=== PATIENT | female | born 1960 | race Caucasian/White ===

== ENCOUNTER → 2019-01-02 | Outpatient (CLI) | payer BC | LOC: MC.RAD 08:45 | DX: Z12.31 Encounter for screening mammogram for malignant neoplasm of breast (principal) ==

== ENCOUNTER → 2020-06-06 | Outpatient (CLI) | payer BC | LOC: COL.RAD 10:16 | DX: E04.2 Nontoxic multinodular goiter (principal) ==

== ENCOUNTER → 2020-06-17 | Outpatient (CLI) | payer BC ==
[~2020-06-17] VITALS: Ht 170.2 cm; Wt 112.3 kg
[~2020-06-17] MED LIST: ALTOPREV40 MG PO; ASPI325T6 PO; FISH OIL 1000MG1 CAP PO; GLUCOPHAGE XR750 MG PO; NORVASC 5MG5 MG/TAB PO; ONE-A-DAY ESSE1 EACH PO; PRIL40 PO; VITAMIN D 50,1.25 MG PO; ZESTRIL40 MG PO; ZETIA 10MG TAB10 MG PO
[2020-06-17 12:13] VITALS: BP 143/95; PULSE 97
[2020-06-17 13:00] VITALS: BP 160/93; PULSE 92
== END ==
LOC: COL.RAD 11:46
DX: E04.1 Nontoxic single thyroid nodule (principal)

== ENCOUNTER → 2021-05-29 | Outpatient (CLI) | payer BC ==
[~2021-05-29] MED LIST changes: +LAMISIL250 M1 PO; +LOMOTIL 0.025 M1 TAB PO; +TRIAMC 0.1 454 TOP
== END ==
LOC: COL.RAD 13:49
DX: R22.41 Localized swelling, mass and lump, right lower limb (principal)

== ENCOUNTER 2021-06-29 10:36 | Inpatient (IN) | payer BC ==
[~2021-06-29] VITALS: Ht 167.6 cm; Wt 110.0 kg
[~2021-06-29 10:36] MED LIST changes: -LAMISIL250 M1 PO; -LOMOTIL 0.025 M1 TAB PO; -TRIAMC 0.1 454 TOP
[2021-06-29 11:15] LABS: HEMOGLOBIN 12.3 g/dl (12.5-16.0); MEAN CELL VOLUME 85 fl (80.0-100.0); MEAN CORPUSCULAR HEMOGLOBIN 28 pg (27.0-31.0); MEAN CORPUSCULAR HGB CONC 32 g/dl (33.0-37.0); MEAN PLATELET VOLUME 10.3 fl (7.4-10.4); PLATELET COUNT 508 K/mm3 (130-400); RED BLOOD COUNT 4.47 M/mm3 (4.10-5.30); REDCELL DISTRIBUTION WIDTH-CV 13.8 % (11.5-14.5)
[2021-06-29 11:33] LABS: ALBUMIN 2.8 gm/dL (3.4-4.8); BILIRUBIN,TOTAL 0.3 mg/dL (0.2-1.2); C-REACTIVE PROTEIN 12.2 mg/dL (0.00-0.50); CALCIUM 9.5 mg/dL (8.4-10.2); CREATININE, serum 1.64 mg/dL (0.57-1.11); POTASSIUM 3.1 mmol/L (3.5-4.5); TOTAL PROTEIN 7.1 gm/dL (6.2-8.1)
[2021-06-29 11:47] LABS: BAND 4 % (0-10); LYMPHOCYTE 25 % (20.0-51.0); NEUTROPHILS 62 % (42.0-75.2)
[2021-06-29 11:48] LABS: HYPOCHROMIA 1+; OVALOCYTES 1+; PLATELET ESTIMATE INCREASED (NORMAL); SCHISTOCYTES 1+
[2021-06-29] MEDS ORDERED: LAMISIL250 M1 PO (12:15)
[2021-06-29] MEDS ORDERED: LOMOTIL 0.025 M1 TAB PO (12:15)
[2021-06-29] MEDS ORDERED: TRIAMC 0.1 454 TOP (12:16)
[2021-06-29 16:18] LABS: MAGNESIUM 1.5 mg/dL (1.6-2.6)
[2021-06-29 16:38] LABS: TSH w REFLEX 0.468 uIU/mL (0.350-4.940)
[2021-06-29 17:59] VITALS: BP 108/59; PULSE 87; TEMP 98
[2021-06-29 20:00] VITALS: BP 112/61; PULSE 91; TEMP 98.2
[2021-06-30 00:09] VITALS: BP 101/56; PULSE 81; TEMP 98.1
[2021-06-30 01:29] LABS: SQUAMOUS EPITHELIAL 0-2 /hpf; URINE BACTERIA None Seen /hpf; URINE RBC 0-2 /hpf
[2021-06-30 03:55] VITALS: BP 100/62; PULSE 84; TEMP 97.8
--- NOTE | 2021-06-30 06:31 | NUR ---
PT HAD UNEVENTFUL NIGHT, PT REMAINS A/OX4,COOPERATIVE AND COMPLIANT. PT DENIES DIZZINESS AND VOMITTING BUT DOES REPORT A HEADACHE, ALL MEDICATIONS ADMINISTERED ORDERED. POC DISCUSSED WITH PT, PT VERBALIZES UNDERSTANDING. ALL QUESTIONS ANSWERED. PT EXPRESSES NO ADDITONAL NEEDS AT THIS TIME. CALL LIGHT WITHIN REACH.
[2021-06-30 07:23] LABS: PATHOLOGY DIFF REVIEW OK
[2021-06-30 07:45] VITALS: BP 119/60; PULSE 83; TEMP 98
--- NOTE | 2021-06-30 08:13 | NUR ---
Pt awake this morning upon entry has C/O headache. Shift assessment complete, left Pt call light in reach, bed in lowest position.
[2021-06-30 09:04] LABS: HEMOGLOBIN 11.4 g/dl (12.5-16.0); MEAN CELL VOLUME 85 fl (80.0-100.0); MEAN CORPUSCULAR HEMOGLOBIN 27 pg (27.0-31.0); MEAN CORPUSCULAR HGB CONC 32 g/dl (33.0-37.0); PLATELET COUNT 502 K/mm3 (130-400); RED BLOOD COUNT 4.19 M/mm3 (4.10-5.30); REDCELL DISTRIBUTION WIDTH-CV 14.3 % (11.5-14.5)
[2021-06-30 09:05] LABS: HEMATOCRIT 35.8 % (37.0-47.0)
[2021-06-30 09:24] LABS: CALCIUM 9.3 mg/dL (8.4-10.2); CHOLESTEROL RISK RATIO 5.8; CREATININE, serum 1.01 mg/dL (0.57-1.11); POTASSIUM 3.6 mmol/L (3.5-4.5)
[2021-06-30 09:51] LABS: BAND 1 % (0-10); HYPOCHROMIA 1+; LYMPHOCYTE 25 % (20.0-51.0); NEUTROPHILS 62 % (42.0-75.2); PLATELET ESTIMATE INCREASED (NORMAL)
--- NOTE | 2021-06-30 10:28 | NUR ---
aquaculture worker met with patient to discuss discharge plan. Patient's daughter present at bedside. Patient lives at home with her Bello ([phone]) in [place]. Patient reports that she is fully independent with her ADL's and does not utilize any DME. PCP is Dr. Brian and utilizes [facility] for medications with no cost difficulty. Patient is interested in advanced directives. aquaculture worker provided DPOA-HC form to the patient and provided education. Left form for the patient to review with her . Her plan is to return home post dc. Discharge plan: Home
[2021-06-30 12:08] VITALS: BP 118/61; PULSE 87; TEMP 98
--- NOTE | 2021-06-30 12:35 | NUR ---
Initial visit; Patient thanked [facility] Filler for introducing herself and offering Blessings.
[2021-06-30 15:26] VITALS: BP 126/75; PULSE 98; TEMP 98.4
[2021-06-30 20:03] VITALS: BP 134/69; PULSE 101; TEMP 97.9
[2021-07-01 01:01] VITALS: BP 111/64; PULSE 74; TEMP 98
[2021-07-01 04:33] VITALS: BP 122/63; PULSE 89; TEMP 98.7
--- NOTE | 2021-07-01 05:43 | NUR ---
PT SLEPT INTERMITTENTLY THIS NIGHT. PT DENIES V,D,SOA, PAIN. PT REPORTS MILD NAUSEA AND HEADACHE. MEDICATION ADMINISTERED ORDERED. PT EXPRESSES NO ADDITIONAL NEEDS AT THIS TIME. CONTACT PRECAUTIONS REMAIN IN PLACE. ALL NEEDS MET THIS NIGHT. CALL LIGHT WITHIN REACH.
[2021-07-01 07:08] LABS: HEMOGLOBIN 10.9 g/dl (12.5-16.0); MEAN CELL VOLUME 88 fl (80.0-100.0); MEAN CORPUSCULAR HEMOGLOBIN 28 pg (27.0-31.0); MEAN CORPUSCULAR HGB CONC 32 g/dl (33.0-37.0); MEAN PLATELET VOLUME 10.8 fl (7.4-10.4); RED BLOOD COUNT 3.95 M/mm3 (4.10-5.30); REDCELL DISTRIBUTION WIDTH-CV 14.3 % (11.5-14.5)
[2021-07-01 07:15] LABS: HEMATOCRIT 34.6 % (37.0-47.0); PLATELET COUNT 607 K/mm3 (130-400)
[2021-07-01 07:29] LABS: CALCIUM 9.3 mg/dL (8.4-10.2); CREATININE, serum 0.81 mg/dL (0.57-1.11); MAGNESIUM 1.7 mg/dL (1.6-2.6); POTASSIUM 3.3 mmol/L (3.5-4.5)
[2021-07-01 07:49] VITALS: BP 127/64; PULSE 86; TEMP 98.4
[2021-07-01 08:03] LABS: BAND 9 % (0-10); EOSINOPHIL 4 % (0-4); LYMPHOCYTE 20 % (20.0-51.0); METAMYELOCYTE 3 % (0-0); NEUTROPHILS 54 % (42.0-75.2); PLATELET ESTIMATE INCREASED (NORMAL)
[2021-07-01 12:55] VITALS: BP 118/72; PULSE 83; TEMP 98.2
[2021-07-01 16:30] VITALS: BP 136/66; PULSE 92; TEMP 98.2
--- NOTE | 2021-07-01 17:48 | NUR ---
PT STATES THAT BMs HAVE SLOWED DOWN, AND ARE NOW BECOMING LESS WATERY. APPETITE IS DECENT, PATIENT IS EATING ALL OF HER MEALS, DRINKING PLENTY OF WATER, AND DENIES ANY PAIN. POTASSIUM INCREASED SLIGHTLY AFTER REPLACEMENT THIS AM. NO OTHER CONCERNS.
[2021-07-01 19:28] VITALS: BP 145/64; PULSE 91; TEMP 98.2
[2021-07-02 04:57] VITALS: BP 141/74; PULSE 93; TEMP 98.2
--- NOTE | 2021-07-02 06:16 | NUR ---
RESTED THROUGH THE NIGHT WITHOUT INCIDENT. NEEDS ARE MET.
[2021-07-02 07:36] LABS: HEMATOCRIT 37.9 % (37.0-47.0); HEMOGLOBIN 12.2 g/dl (12.5-16.0); MEAN CELL VOLUME 86 fl (80.0-100.0); MEAN CORPUSCULAR HEMOGLOBIN 28 pg (27.0-31.0); MEAN CORPUSCULAR HGB CONC 32 g/dl (33.0-37.0); MEAN PLATELET VOLUME 10.7 fl (7.4-10.4); RED BLOOD COUNT 4.42 M/mm3 (4.10-5.30); REDCELL DISTRIBUTION WIDTH-CV 14.3 % (11.5-14.5)
[2021-07-02 07:40] LABS: PLATELET COUNT 725 K/mm3 (130-400)
[2021-07-02 07:46] VITALS: BP 154/72; PULSE 93; TEMP 98
[2021-07-02 07:48] LABS: CALCIUM 9.9 mg/dL (8.4-10.2); CREATININE, serum 0.78 mg/dL (0.57-1.11); POTASSIUM 3.6 mmol/L (3.5-4.5)
[2021-07-02 08:34] LABS: ANISOCYTOSIS 1+; BAND 3 % (0-10); EOSINOPHIL 4 % (0-4); HYPOCHROMIA 1+; LYMPHOCYTE 26 % (20.0-51.0); NEUTROPHILS 53 % (42.0-75.2); PLATELET ESTIMATE INCREASED (NORMAL); SCHISTOCYTES 1+
--- NOTE | 2021-07-02 10:19 | NUR ---
PT LAYING DOWN IN BED IN PLEASANT MOOD. BREAKFAST HAD ALREADY BEEN ORDERED AND EATEN. PT CURIOUS TO SEE IF ABLE TO GO HOME TODAY. PT TOLD ABOUT WAITING ON DR AND LABS TO CONFIRM POSSIBLE DISCHARGE. PT IS PLEASANT AND HAD NO CONCERNS, DENIES PAIN. CALL LIGHT IN REACH. NO OTHER NEEDS AT THIS TIME
--- NOTE | 2021-07-02 11:13 | NUR ---
PT FULLY DISCHARGED. ESCORTING PT TO EXIT, PT WALKING AT REQUEST. IV DISCONTINUED, EDUCATION AND DISCHARGE INSTRUCTIONS GIVEN, NO QUESTIONS AND ACKNOWLEDGED UNDERSTANDING.
== END 2021-07-02 11:15 | disposition home or self-care (01) | DRG 392 ==
LOC: COL.ER 10:36 → MEDICAL 12:48
PROVIDERS: Emergency Medicine; Physician Assistant; ADMIT Internal Medicine
DX: K57.92 Diverticulitis of intestine, part unspecified, without perforation or abscess without bleeding (principal); N17.9 Acute kidney failure, unspecified; E87.1 Hypo-osmolality and hyponatremia; E87.6 Hypokalemia; E66.9 Obesity, unspecified; K21.9 Gastro-esophageal reflux disease without esophagitis; F17.210 Nicotine dependence, cigarettes, uncomplicated; D75.839 Thrombocytosis, unspecified; I12.9 Hypertensive chronic kidney disease with stage 1 through stage 4 chronic kidney disease, or unspecified chronic kidney disease; N18.30 Chronic kidney disease, stage 3 unspecified; E11.22 Type 2 diabetes mellitus with diabetic chronic kidney disease; E83.52 Hypercalcemia; E86.1 Hypovolemia; B96.20 Unspecified Escherichia coli [E. coli] as the cause of diseases classified elsewhere; N28.1 Cyst of kidney, acquired; B34.9 Viral infection, unspecified; D64.9 Anemia, unspecified; E83.42 Hypomagnesemia; Z20.822 Contact with and (suspected) exposure to COVID-19; Z79.84 Long term (current) use of oral hypoglycemic drugs; Z68.38 Body mass index [BMI] 38.0-38.9, adult
CPT/HCPCS: 99222-AI; 99233-AI; 99239; J0696; J1650; J1956; J2405; J2550; J3475; J7030

== ENCOUNTER → 2021-07-08 | Outpatient (CLI) | payer BC ==
[~2021-07-08] MED LIST changes: +LAMISIL250 M1 PO; +LOMOTIL 0.025 M1 TAB PO; +TRIAMC 0.1 454 TOP
== END ==
LOC: MC.RAD 14:18
DX: Z12.31 Encounter for screening mammogram for malignant neoplasm of breast (principal)

== ENCOUNTER → 2021-12-19 | Outpatient (CLI) | payer BC | LOC: COL.RAD 08:46 | DX: N28.1 Cyst of kidney, acquired (principal); D18.09 Hemangioma of other sites | CPT/HCPCS: A9575 ==

== ENCOUNTER → 2022-04-28 | Outpatient (CLI) | payer BC | LOC: MC.RAD 16:29 | DX: Z12.31 Encounter for screening mammogram for malignant neoplasm of breast (principal) ==

== ENCOUNTER → 2022-07-09 | Outpatient (CLI) | payer BC | LOC: MC.RAD 16:25 | DX: Z12.31 Encounter for screening mammogram for malignant neoplasm of breast (principal) ==

== ENCOUNTER → 2022-12-04 | Outpatient (CLI) | payer BC | LOC: COL.RAD 14:59 | DX: E04.1 Nontoxic single thyroid nodule (principal) ==

== ENCOUNTER → 2023-12-08 | Outpatient (CLI) | payer BC | LOC: MC.RAD 07:08 | DX: Z12.31 Encounter for screening mammogram for malignant neoplasm of breast (principal) ==